=== PATIENT | female | born 2000 | race Caucasian/White ===

== ENCOUNTER 2024-04-05 18:31 | Emergency (ER) | payer OTHER, SELFPAY ==
[2024-04-05 18:32] VITALS: BP 114/64
--- NOTE | 2024-04-05 19:16 | ED.GENMED ---
History of Present Illness
General
Chief Complaint: Musculo-Skeletal Complaint
Source: patient
Time Seen by Provider: 04/05/24 18:37
History of Present Illness
History of Present Illness:
23-year-old female with past medical history of paroxysmal atrial fibrillation presenting to the ER for evaluation of right ankle pain after an accidental fall at work pointing to the medial area as to where most of her pain is located. No other
injuries were sustained. Patient denies any previous history of injury or surgery to the affected right ankle.
Past History
Past History
ED Past Medical History: Arrthythmia
ED Past Surgical History: None
Social History
Tobacco: Non-smoker
Alcohol: None
Drug: None
Personal: Single
Living: with family
Employment: Employed
Review of Systems
Review of Systems
All Other Systems: ROS reviewed and negative except as documented in HPI and ROS
Phy Exam
Physical Exam
Physical Exam:
GENERAL: Alert , in no apparent distress
EYE: conjunctiva clear
Head: Normocephalic atraumatic
NECK: Supple,
ENT: mmm.
LUNGS: no acute respiratory distress
NEUROLOGICAL: Alert and oriented
SKIN: Warm and dry, skin intact.
MUSCULOSKELETAL: RLE: No obvious deformity, erythema, edema, ecchymosis, abrasions or lacerations. No focal areas of tenderness to palpation. Patient allows for full range of motion without much difficulty. Easily palpable pedal and tibial
pulses. Cap refill less than 2 seconds. Sensation grossly intact to light touch.
PSYCH: Normal and appropriate interaction.
Course
Orders/Labs/Results
Orders:
Orders
04/05/24 18:50
CR Ankle - Right Min 3 Views * Urgent
Comment:
Reason For Exam: fall, pain
Vital Signs
Initial and Last Documented VS:
Initial Vital Signs
Temp Pulse Resp BP Pulse Ox
98.2 F 76 16 114/64 100
04/05/24 18:32 04/05/24 18:32 04/05/24 18:32 04/05/24 18:32 04/05/24 18:32
Last Documented Vital Signs
Temp Pulse Resp BP Pulse Ox
98.2 F 76 16 114/64 100
04/05/24 18:32 04/05/24 18:32 04/05/24 18:32 04/05/24 18:32 04/05/24 18:32
MDM/Problems Addressed
Differential Diagnosis Includes:
Sprain, contusion, fracture
MDM/Problems Addressed:
23-year-old female presenting to the ER for further evaluation of right ankle pain following an accidental fall. Exam reassuring. X-ray ordered does not show any acute fracture. Offered Mc wrap or other assistive device and patient declines.
NSAIDs/Tylenol as needed for pain. Information for orthopedics provided for patient to use as needed. She is otherwise stable for discharge home.
*Radiology
Radiology exam reviewed: preliminary read by ED provider (No acute fracture)
*Pulse Oximetry
Patient hypoxic: no
*Critical Care Note
Total Time (30-74mins, 75-104mins- exclusive of procedures): Not Applicable
ED Attending Note
-
Portions of this chart may have been created with voice recognition software.� Occasional wrong word or��sound alike� substitutions may have occurred due to the inherent limitations of voice recognition software.
Discharge Plan
Departure
Patient Disposition: Home (Routine Discharge)
Date of Disposition: 04/05/24
Time of Disposition: 19:16
Patient with high blood pressure during this ER visit?: No
Discharge Problem:
Right ankle sprain
Instructions: Sprain (DC)
Prescriptions:
No Action
pediatric multivitamin [Children's Chewable] 1 EACH tablet,chewable
2 ea PO DAILY
hydrocodone-acetaminophen [Vicodin] 1 EACH tablet
0.5 - 1 ea PO Q6H PRN (Reason: pain) Qty: 15 0RF
Referrals:
Brad Black MD [Active] - (ortho - as needed)
UNKNOWN - PT DOES,NOT KNOW [Family Provider] -
Stand Alone Forms: Return to Work
Interventions
Interventions:
*Risk Screen - Suicide Last Done: 04/05/24 18:33
*Neglect/Abuse Screening Last Done: 04/05/24 18:33
*ED COVID-19 Vaccine History Last Done: 04/05/24 18:33
*Nursing Disposition Last Done: 04/05/24 19:19
Discharge Date and Time
Discharge Date/Time: 04/05/24 19:19
Print Language: MACANESE
== END 2024-04-05 19:19 | disposition home or self-care (01) ==
LOC: EMR 18:31
PROVIDERS: EMERGENCY PHYSICIAN Student in an Organized Health Care Education/Training Program
DX: S93.401A Sprain of unspecified ligament of right ankle, initial encounter (principal); W19.XXXA Unspecified fall, initial encounter; Y99.0 Civilian activity done for income or pay; I48.0 Paroxysmal atrial fibrillation
CPT/HCPCS: 99283; 73610

== ENCOUNTER 2024-12-14 20:18 | Emergency (ER) | payer OTHER, SELFPAY ==
[2024-12-14 20:19] VITALS: BP 131/83
[2024-12-14 20:35] LABS: Hematocrit 37.2 % (37.0-47.0); Hemoglobin 12.9 g/dL (12.0-16.0); Mean Corp Hgb Conc. 34.7 g/dL (33.0-37.0); Mean Corpuscular Volume 91.0 fL (81.0-99.0); Nucleated Red Blood Cells % 0 %; Platelet Count 276 10^3/uL (130-400); Red Cell Dist. Width 12.5 % (11.5-14.5)
[2024-12-14 20:56] LABS: HCG, Serum Qualitative Screen Negative
[2024-12-14 21:00] LABS: ALT (SGPT) 15 U/L (0-35); AST (SGOT) 19 U/L (14-36); Albumin 4.7 g/dl (3.5-5.0); Alkaline Phosphatase 52 U/L (38-126); Blood Urea Nitrogen 10 mg/dl (7-17); Calcium 9.7 mg/dl (8.4-10.2); Carbon Dioxide 25 mmol/L (22-30); Chloride 107 mmol/L (98-107); Glucose 235 mg/dl (70-99); Potassium 4.2 mmol/L (3.5-5.1); Sodium 139 mmol/L (135-145); Total Protein 7.2 g/dl (6.3-8.2); eGFR > 60.00
--- NOTE | 2024-12-14 22:41 | ED.GENMED ---
History of Present Illness
General
Chief Complaint: Headache
Source: patient
Time Seen by Provider: 12/14/24 22:24
History of Present Illness
History of Present Illness:
24-year-old female presents to the emergency room complaining of a headache. Patient has had a headache for several weeks. She recalls the headache started while she was traveling she can remember the specific time. She was having breakfast while
driving to [facility] and the headache made her go back and take a nap. The headaches not gone away since then. It waxes and wanes in intensity. The pain is primarily in the top of her head and sometimes she has a sharp pain behind her left eye.
Patient works as a sql server dba and has noticed that towards the end of her 12-hour shift she is making a lot of mistakes. She has experienced some floaters with a headache. Light and sound does seem to bother her. She denies any headaches such as this
though she has headaches from time to time which are normally alleviated with [id number] medication. Patient has been seen by her primary care doctor and was initially prescribed Advil. This helps reduce the pain but the headaches not gone
away. She recently started a course of steroids which has not seemed to help. Headache actually seems worse. No nausea or vomiting. No focal weakness numbness or tingling. No difficulty with ambulating.
Past History
Past History
ED Past Medical History: Arrthythmia
ED Past Surgical History: None
Social History
Tobacco: Non-smoker
Alcohol: None
Drug: None
Personal: Single
Living: with family
Employment: Employed
Phy Exam
Physical Exam
Physical Exam:
General: Awake, Alert, Oriented X3. No acute distress.
Vitals: unremarkable
Head: Atraumatic
Eyes: Pupils equal, EOMI
Throat: Airway intact, no exudates
Neck: Trachea midline
Lungs: Clear and equal b/l
Heart: Regular rate, no murmurs
Abd: Soft, Nontender, No pulsatile mass
Neuro: Cranial nerves intact, muscle strength equal bilaterally, cerebellar exam normal
Skin: Warm, dry, no rash
Extremities: pulses equal b/l, no edema
Course
Orders/Labs/Results
Orders:
Orders
12/14/24 20:22
ECG [Electrocardiogram (*1)] Urgent
Reason for Study: Vertigo / Dizzy
EKG- Treatment ONCE
Test Result ONCE
12/14/24 20:26
Beta Hcg Serum Qualitative Screen [HCG, Serum Qualitative Screen] Urgent
CMP [Comprehensive Metabolic Panel] Urgent
Complete Blood Count/With Diff Urgent
12/14/24 22:37
0.9% Sodium Chloride 500 ml [Nss] 500 ml IV BOLUS
Diphenhydramine [Benadryl] 25 mg IV NOW STA
Metoclopramide [Reglan] 10 mg IV NOW STA
12/14/24 22:39
CT Head W/o Iv Contrast Urgent
Comment:
Reason For Exam: persistent morse, periods of confusion
12/14/24 23:21
Urinalysis Urgent
Date Specimen was Collected: 12/14/24
Time Specimen was Collected: 23:18
Abnormal Lab Results
12/14/24
20:26
RBC 4.09 L 10^6/uL
(4.20-5.40)
MCH 31.5 H pg
(27.0-31.0)
MPV 11.0 H fL
(7.4-10.4)
Absolute Neuts (auto) 7.5 H 10^3/uL
(1.4-6.5)
Absolute Lymphs (auto) 0.9 L 10^3/uL
(1.2-3.4)
Neutrophils % 85.9 H %
(42.2-75.2)
Lymphocytes % 10.7 L %
(20.5-51.1)
Glucose 235 H mg/dl
(70-99)
12/14/24 20:26
12/14/24 20:26
Vital Signs
Initial and Last Documented VS:
Initial Vital Signs
Temp Pulse Resp BP Pulse Ox
98.8 F 99 18 131/83 98
12/14/24 20:19 12/14/24 20:19 12/14/24 20:19 12/14/24 20:19 12/14/24 20:19
Last Documented Vital Signs
Temp Pulse Resp BP Pulse Ox
98.8 F 99 18 131/83 98
12/14/24 20:19 12/14/24 20:19 12/14/24 20:19 12/14/24 20:19 12/14/24 22:43
MDM/Problems Addressed
Differential Diagnosis Includes:
Migraine-like headache, tension headache, intracranial mass
MDM/Problems Addressed:
Head CT shows no acute abnormalities. Patient declined medication for her headache. Evidently she most desired a CAT scan and now she can follow-up with her primary care doctor. Suspect the patient has a migraine variant. Certainly stable for
discharge home.
*Radiology
Radiology exam reviewed: radiology read reviewed
*Pulse Oximetry
SaO2: 98
Oxygen Mode of Delivery: Room air
Patient hypoxic: no
*Critical Care Note
Total Time (30-74mins, 75-104mins- exclusive of procedures): Not Applicable
ED Attending Note
-
Portions of this chart may have been created with voice recognition software.� Occasional wrong word or��sound alike� substitutions may have occurred due to the inherent limitations of voice recognition software.
Discharge Plan
Departure
Patient Disposition: Home (Routine Discharge)
Date of Disposition: 12/15/24
Time of Disposition: 00:07
Patient with high blood pressure during this ER visit?: No
Discharge Problem:
Headache, Hyperglycemia
Instructions: Headache, Adult (DC)
Prescriptions:
No Action
pediatric multivitamin [Children's Chewable] 1 EACH tablet,chewable
2 ea PO DAILY
hydrocodone-acetaminophen [Vicodin] 1 EACH tablet
0.5 - 1 ea PO Q6H PRN (Reason: pain) Qty: 15 0RF
Referrals:
UNKNOWN - PT DOES,NOT KNOW [Family Provider]
Activity Restrictions/Additional Instructions:
You came to the emergency room for evaluation of a headache. Your neurologic exam is normal fortunately. CAT scan of your head shows no abnormalities. We discussed some IV medications to help your headache but you would prefer to avoid these.
Blood work showed your glucose level was high which is likely related to the steroids you are taking. You should have this rechecked by your primary care doctor after you are off the steroids for a week or 2. Return to the emergency room for any
concerns.
Interventions
Interventions:
*Risk Screen - Suicide Last Done: 12/14/24 20:19
*General Assessment Last Done: 12/15/24 00:55
*Neglect/Abuse Screening Last Done: 12/14/24 20:19
*ED- Fall Risk Assessment Last Done: 12/15/24 00:55
*ED COVID-19 Vaccine History Last Done: 12/15/24 00:55
*Nursing Disposition Last Done: 12/15/24 00:56
ED- Neurological Assessment Last Done: 12/15/24 00:55
Discharge Date and Time
Discharge Date/Time: 12/15/24 00:57
Print Language: UZBEK
[2024-12-14 23:36] LABS: Urine Character Clear (Clear)
== END 2024-12-15 00:57 | disposition home or self-care (01) ==
LOC: EMR 20:18
PROVIDERS: Emergency Medicine; EMERGENCY PHYSICIAN Emergency Medicine
DX: R51.9 Headache, unspecified (principal); R73.9 Hyperglycemia, unspecified
CPT/HCPCS: 99284; 70450; 80053; 81003; 84703; 85025; 93005

== ENCOUNTER 2024-12-15 10:07 | Emergency (ER) | payer OTHER, SELFPAY ==
[2024-12-15 10:14] VITALS: BP 107/74
[2024-12-15 10:38] VITALS: BMI 22.8
--- NOTE | 2024-12-15 10:49 | ED.GENMED ---
History of Present Illness
General
Chief Complaint: Headache
Source: patient
Exam Limitations: none
Time Seen by Provider: 12/15/24 10:36
Nursing documentation reviewed up to this point in time: agreed with
History of Present Illness
History of Present Illness:
24-year-old female presents emergency department due to headache ongoing for the past 6 weeks.She was seen last night in the emergency department but declined medications. She called her primary care doctor and was told to come back to the
emergency department.
Past History
Past History
ED Past Medical History: Arrthythmia
ED Past Surgical History: None
Social History
Tobacco: Non-smoker
Alcohol: None
Drug: None
Personal: Single
Living: with family
Employment: Employed
Review of Systems
Review of Systems
Allergies reviewed?: Yes
All Other Systems: Not applicable
Constitutional: Reports no symptoms
EENT: Reports no symptoms
Respiratory: Reports no symptoms
Cardiac: Reports no symptoms
ABD/GI: Reports no symptoms
: Reports no symptoms
Musculoskeletal: Reports no symptoms
Skin: Reports no symptoms
Neurological: Reports headache
Endocrine: Reports no symptoms
Hematologic/Lymphatic: Reports no symptoms
Psychiatric: Reports no symptoms
Phy Exam
Physical Exam
Physical Exam:
Physical Exam
General: no apparent distress, not acutely ill
Neck: supple. no meningeal signs. normal posterior pharynx
Heart: s1/s2 regular rate and rhythm, no murmur. equal radial
pulses.
HEENT: Pupils equal round reactive to light, EOMI
Lungs: no acute respiratory distress. clear bilaterally
Abdomen: normal bowel sounds. not tender. no CVAT
Neuro: alert and oriented. no focal neurological deficits cranial nerves II through XII intact
Skin: no rash
Psychiatric: well kept. interactive and cooperative
Extremities: no edema. no calf tenderness. negative homans. good distal pulses
Course
Orders/Labs/Results
Orders:
Orders
12/15/24 12:24
IV Insert/Care/Rem.- Treatment PRN
Diphenhydramine [Benadryl] 25 mg IV NOW STA
Metoclopramide [Reglan] 10 mg IV NOW STA
Vital Signs
Initial and Last Documented VS:
Initial Vital Signs
Temp Pulse Resp BP Pulse Ox
98.0 F 69 16 107/74 98
12/15/24 10:14 12/15/24 10:14 12/15/24 10:14 12/15/24 10:14 12/15/24 10:14
Last Documented Vital Signs
Temp Pulse Resp BP Pulse Ox
98.0 F 68 16 114/86 98
12/15/24 10:14 12/15/24 12:23 12/15/24 12:23 12/15/24 12:23 12/15/24 12:23
MDM/Problems Addressed
Differential Diagnosis Includes:
Migraine, meningitis, tumor
MDM/Problems Addressed:
24-year-old female with headache, likely migraine. Improved with Reglan and Benadryl. Discharged follow-up primary care. Return precaution given.
*Radiology
Radiology exam reviewed: radiology read reviewed (CT head no acute findings 12/14/2024)
*Pulse Oximetry
SaO2: 98
Oxygen Mode of Delivery: Room air
Patient hypoxic: no
*Critical Care Note
Total Time (30-74mins, 75-104mins- exclusive of procedures): Not Applicable
ED Attending Note
-
Portions of this chart may have been created with voice recognition software.� Occasional wrong word or��sound alike� substitutions may have occurred due to the inherent limitations of voice recognition software.
Discharge Plan
Departure
Patient Disposition: Home (Routine Discharge)
Date of Disposition: 12/15/24
Time of Disposition: 13:25
Patient with high blood pressure during this ER visit?: No
Condition: Good
Discharge Problem:
Headache
Instructions: Headache, Adult (DC)
Prescriptions:
No Action
fluoxetine 15 mg Tablet
15 mg PO DAILY
Vitamin B-12
1 tab PO DAILY
Vitamin D2
1 tab PO DAILY
Referrals:
Madelin Laboy CRNP [Family Provider, Family Practice] - Call in 1-3 days for appt
Interventions
Interventions:
*Risk Screen - Suicide Last Done: 12/15/24 10:14
*General Assessment Last Done: 12/15/24 10:38
*Neglect/Abuse Screening Last Done: 12/15/24 10:14
*ED- Fall Risk Assessment Last Done: 12/15/24 10:38
*ED COVID-19 Vaccine History Last Done: 12/15/24 10:38
ED- Neurological Assessment Last Done: 12/15/24 10:42
Discharge Date and Time
Print Language: CITIZ[place]
[2024-12-15 12:23] VITALS: BP 114/86
[2024-12-15] MEDS: REGLAN 10 MG IV (12:32)
[2024-12-15] MEDS: BENADRYL 25 MG IV (12:32)
== END 2024-12-15 13:50 | disposition home or self-care (01) ==
LOC: EMR 10:07
PROVIDERS: EMERGENCY PHYSICIAN Emergency Medicine; FAMILY PHYSICIAN Nurse Practitioner
DX: R51.9 Headache, unspecified (principal)
CPT/HCPCS: 99282; 96374; 96375

== ENCOUNTER → 2025-03-04 16:58 | Outpatient (REF) | payer OTHER, SELFPAY | LOC: MRI 3T 16:58 | PROVIDERS: ATTENDING PHYSICIAN Nurse Practitioner | DX: R51.9 Headache, unspecified (principal) | CPT/HCPCS: 70553; A9575 ==